=== PATIENT | female | born 1985 | race Hispanic/Latino ===

== ENCOUNTER 2017-08-16 09:37 | Emergency (ER) | payer OTHER ==
[2017-08-16 09:44] VITALS: O2SAT 100
[2017-08-16 09:45] VITALS: BMI 18.7
[2017-08-16] MEDS ORDERED: Sodium Chloride 0.9% 1,000 ML IV STA (10:08)
--- NOTE | 2017-08-16 10:12 | ED PDOC ---
HPI:Nausea, Vomiting, Diarrhea Time Seen by Provider: 08/16/17 09:50 Chief Complaint (Nursing): GI Problem History Per: Patient Onset/Duration Of Symptoms: Days (3) Current Symptoms Are (Timing): Intermittent Episodes Have you had recent travel within the past 21 days to any of the following countries: [place], [place], [place] or [place]?: Yes Other Location:: [facility] Context: Travel Severity: Mild Associated Symptoms: Nausea, Vomiting. denies: Fever, Diarrhea, Urinary Symptoms Exacerbating Factors: None Alleviating Factors: None Additional Complaint(s): Nausea and vomiting x 3 days. Returned from trip to [facility] yesterday. Denies abd pain, diarrhea or fever. Denies vaginal bleeding. Denies urinary sxs. Seen by MD in [facility] 3 days ago, blood work and ob US nl. Also c/o right ear pain and congestion. Abnormal Vaginal Bleeding: No Past Medical History Vital Signs: Last Vital Signs Temp 98.2 F 08/16/17 09:43 Pulse 100 H 08/16/17 09:43 Resp 16 08/16/17 09:43 BP 126/86 08/16/17 09:43 Pulse Ox 100 08/16/17 09:43 - Medical History Other PMH: Chronic sinus infections - Family History Family History: States: Unknown Family Hx - Home Medications Home Medications: Ambulatory Orders Medication Instructions Recorded Amoxicillin [Amoxil 500 mg Cap] 500 mg PO TID #30 cap 08/16/17 Doxylamine/Pyridoxine HCl (B6) 1 each PO DAILY #15 tablet. 08/16/17 [Mello Blackman 10-10 mg Tablet] - Allergies Allergies/Adverse Reactions: Allergies Allergy/AdvReac Type Severity Reaction Status Date / Time No Known Allergies Allergy Verified 08/16/17 09:52 Review of Systems Constitutional: Negative for: Fever ENT: Positive for: Ear Pain Cardiovascular: Negative for: Chest Pain Respiratory: Negative for: Cough Gastrointestinal: Positive for: Nausea, Vomiting. Negative for: Abdominal Pain , Diarrhea Genitourinary Female: Negative for: Dysuria, Frequency, Vaginal Bleeding Physical Exam - Physical Exam Appears: Positive for: Non-toxic, No Acute Distress Skin: Positive for: Normal Color, Warm, DRY ENT: Positive for: TM Is/Are (nl), Other (Mucous membranes dry. Right ear canal erythemetous) Neck: Positive for: Normal, Painless ROM Cardiovascular/Chest: Positive for: Regular Rate, Rhythm Respiratory: Positive for: CNT, Normal Breath Sounds Gastrointestinal/Abdominal: Positive for: Bowel Sounds, Soft. Negative for: Tenderness Extremity: Positive for: Normal ROM - Laboratory Results Result Diagrams: 08/16/17 10:10 08/16/17 10:10 - ECG O2 Sat by Pulse Oximetry: 100 Disposition - Clinical Impression Clinical Impression: Hyperemesis gravidarum, Otitis externa - Patient ED Disposition Is Patient to be Admitted: No Counseled Patient/Family Regarding: Studies Performed, Diagnosis, Need For Followup, Rx Given - Disposition [facility] Disposition: Routine/Home Disposition Time: 13:35 Condition: FAIR Prescriptions: Amoxicillin [Amoxil 500 mg Cap] 500 mg PO TID #30 cap Doxylamine/Pyridoxine HCl (B6) [Mello Blackman 10-10 mg Tablet] 1 each PO DAILY # 15 tablet.dr Forms: [employer] ([place]ic), [facility] ED School/Work Excuse
[2017-08-16 10:27] LABS: BASO % 0.2 % (0.0-2.0); EOS # 0.1 K/uL (0.0-0.7); EOS % 1.1 % (0.0-4.0); HEMOGLOBIN 12.5 g/dL (12.0-16.0); LYMPH # 1.1 K/uL (1.0-4.3); LYMPH % 9.2 % (20.0-40.0); MEAN CELL VOLUME 89.9 fl (81.0-99.0); MEAN CORPUSCULAR HEMOGLOBIN 30.1 pg (27.0-31.0); MEAN CORPUSCULAR HGB CONC 33.4 g/dL (33.0-37.0); MONO # 1.2 K/uL (0.0-0.8); MONO % 9.8 % (0.0-10.0); NEUT # 9.6 K/uL (1.8-7.0); NEUT % 79.7 % (50.0-75.0); PLATELET COUNT 222 K/uL (130-400); RBC 4.17 Mil/uL (3.80-5.20); RED CELL DISTRIBUTION WIDTH 13.4 % (11.5-14.5)
[2017-08-16 10:38] LABS: ALB/GLOB RATIO 1.3 (1.0-2.1); ALBUMIN 3.7 g/dL (3.5-5.0); ALT/SGPT 34 U/L (9-52); AST/SGOT 27 U/L (14-36); BLOOD UREA NITROGEN 6 mg/dl (7-17); CALCIUM 8.4 mg/dL (8.4-10.2); GFR AFRICAN-AMERICAN > 60; GFR NON-AFRICAN AMERICAN > 60
[2017-08-16 12:27] LABS: ANISOCYTOSIS SLIGHT; LARGE PLATELETS PRESENT; LYMPHOCYTE 11 % (20-50); MONOCYTE 8 % (0-10); NEUTROPHIL 81 % (42-75); OVALOCYTES SLIGHT; PLATELET ESTIMATE NORMAL (NORMAL); TOTAL CELLS COUNTED 100
[2017-08-16 13:49] VITALS: BP 122/65; PULSE 81; RESP 14; TEMP 98
--- NOTE | 2017-08-16 13:53 | US ---
PROCEDURE: OB Pelvic Ultrasound HISTORY: abd pain LMP 06/11/2017 suggesting gestation of 9 weeks 3 days. COMPARISON: None available. FINDINGS: UTERUS: A gestational sac is identified within the endometrial cavity as well as a pole and yolk sac with amniotic membrane well defined as well. Mean sac diameter is 3.3 cm with pole mean crown-rump length measurement of 9 weeks 0 days. The sac size is 0.26 cm. cardiac tears recorded at 167 beats per minute. An inferior placenta seen both anteriorly and posteriorly which cover the internal cervical os completely. A small anterior subchorionic hemorrhage is appreciated on a subacute or chronic basis. Follow-up ultrasonography recommended. Uterus is anteverted measuring 8.4 x 5.1 x 8.7 cm without focal myometrial mass. CERVIX: Measures 3.5 cm. Long and closed. No cervical abnormality seen. RIGHT OVARY: Measures 3.5 x 2.4 x 3.0 cm. No mass lesion. Normal flow. A corpus luteum cyst measures 1.3 x 1.0 x 1.1 cm. LEFT OVARY: Measures 2.0 x 1.9 x 2.1 cm. No solid mass. Normal flow. FREE FLUID: None. OTHER FINDINGS: None. IMPRESSION: A single viable intrauterine gestation is identified with average ultrasonic age of 9 weeks 0 days which is concordant with menstrual dates. An inferior placenta developing covering the internal cervical os completely for which follow-up pelvic ultrasonography is advised. There is also small likely subacute or chronic subchorionic hematoma anteriorly.
== END 2017-08-16 13:51 | disposition home or self-care (01) ==
LOC: H.ER 09:37
DX: O21.0 Mild hyperemesis gravidarum (principal); O26.891 Other specified pregnancy related conditions, first trimester; H60.90 Unspecified otitis externa, unspecified ear; Z3A.09 9 weeks gestation of pregnancy
CPT/HCPCS: 76817; 80053; 84702; 85025; 99284; J7030